=== PATIENT | male | born 2000 | race Two or more races ===

== ENCOUNTER 2022-12-26 00:29 | Emergency (ER) | payer OTHER ==
[~2022-12-26] VITALS: Ht 180.3 cm; Wt 115.9 kg
[2022-12-26 04:10] VITALS: BP 137/91
== END 2022-12-26 04:20 | disposition home or self-care (01) ==
LOC: ER 00:29
DX: S46.912A Strain of unspecified muscle, fascia and tendon at shoulder and upper arm level, left arm, initial encounter (principal); J45.909 Unspecified asthma, uncomplicated; V89.2XXA Person injured in unspecified motor-vehicle accident, traffic, initial encounter; Y93.89 Activity, other specified; Y92.89 Other specified places as the place of occurrence of the external cause; Y99.8 Other external cause status
CPT/HCPCS: 73030

== ENCOUNTER 2024-01-30 21:09 | Emergency (ER) | payer OTHER ==
[~2024-01-30] VITALS: Ht 180.3 cm; Wt 250.0 kg
[2024-01-30 21:09] VITALS: BP 113/86; PULSE 111; RESP 20; O2SAT 97
== END 2024-01-31 00:41 | disposition home or self-care (01) ==
LOC: ER 21:09
DX: S63.692A Other sprain of right middle finger, initial encounter (principal); J45.909 Unspecified asthma, uncomplicated; W22.8XXA Striking against or struck by other objects, initial encounter; Y93.89 Activity, other specified; Y92.89 Other specified places as the place of occurrence of the external cause; Y99.0 Civilian activity done for income or pay
CPT/HCPCS: 73130

== ENCOUNTER 2025-05-01 18:56 | Emergency (ER) | payer SELFPAY ==
[~2025-05-01] VITALS: Ht 180.3 cm; Wt 122.9 kg
[2025-05-01 20:23] VITALS: O2SAT 97
[2025-05-01] MEDS ORDERED: CEPH500C PO (20:33)
--- NOTE | 2025-05-01 20:36 | ED.PDOC ---
History of Present Illness(SKN HPI Comments 24-year-old male presents to ER with complaints of facial injury x1 day. Patient reports that he was reaching up to grab "a metal tote" in his garage at 2:00 p.m. prior to arrival to ER when the metal tote fell and hit the right side of his face. Denies head injury/LOC. Patient presents to ER with minimal abrasions/swelling noted to right facial cheek with bleeding controlled. He denies any current pain and presents to ER ambulatory on arrival, alert oriented x4, with steady gait, in no distress. Denies headache, neck pain, n/v, numbness/tingling, eye pain or any further symptoms/complaints Chief Complaint: Facial Injury Time Seen by MD: 19:00 Primary Care Provider: ROMAINE History of Present Illness: Nurses Notes, Medications, Allergies Allergies: Coded Allergies: NO KNOWN ALLERGIES (Unverified , 01/25/13) Home Meds Active Scripts Cephalexin Monohydrate (Cephalexin) 500 Mg Cap, 1 CAP PO BID for 7 Days, #14 CAP 0 Refills Prov:RADHA LANTIGUA 05/01/25 Information Source: Patient Mode of Arrival: Ambulatory Tetanus: UTD Past Medical History PAST MEDICAL HISTORY: Asthma Surgical History: Appendectomy Family History Family History: Unknown Social History Smoker: Non-Smoker Alcohol: Denies ETOH Use Drugs: Denies Drug Use Lives In: Home Constitutional: denies: chills, diaphoresis, fatigue, fever, malaise, sweats, weakness, others EENTM: reports: others (As stated in HPI) Respiratory: denies: cough, hemoptysis, orthopnea, SOB at rest, shortness of breath, SOB with excertion, stridor, wheezing, others Cardiovascular: denies: chest pain, dizzy spells, diaphoresis, Dyspnea on exertion, edema, irregular heart beat, left arm pain, lightheadedness, palpitations, PND, syncope, others Gastrointestinal: denies: abdomen distended, abdominal pain, blood streaked bowels, constipated, diarrhea, dysphagia, difficulty swallowing, hematemesis, melena, nausea, poor appetite, poor fluid intake, rectal bleeding, rectal pain, vomiting, others Genitourinary: denies: burning, dysuria, flank pain, frequency, hematuria, incontinence, penile discharge, penile sore, pain, testicle pain, testicle swelling, urgency, others Neurological: denies: dizziness, fainting, headache, left sided numbness, left sided weakness, numbness, paresthesia, pre-existing deficit, right sided numbness, right sided weakness, seizure, speech problems, tingling, tremors, weakness, others Musculoskeletal: denies: back pain, gout, joint pain, joint swelling, muscle pain, muscle stiffness, neck pain, others Integumetry: reports: others (As stated in HPI) Allergic/Immunocompromised: denies: Difficulty Healing, Frequent Infections, Hives, Itching, others Hematologic/Lymphatic: denies: anemia, blood clots, easy bleeding, easy bruising, swollen glands, others Endocrine: denies: excessive hunger, excessive sweating, excessive thirst, excessive urination, flushing, intolerance to cold, intolerance to heat, unexplained weight gain, unexplained weight loss, others Psychiatric: denies: anxiety, bipolar disorder, depression, hopeless, panic disorder, schizophrenia, sleepless, suicidal, others Physical Exam General Appearance: No Apparent Distress, Obese HEENT: Normal ENT Inspection, PERRL/EOMI, Pharynx Normal, TMs Normal, Other (Minimal abrasions/swelling/TTP noted to right facial cheek with bleeding controlled. No periorbital swelling/ecchymosis/laceration/further skin changes noted) Neck: Full Range of Motion, Non-Tender, Normal Respiratory: Chest Non-Tender, Lungs Clear, No Accessory Muscle Use, No Respiratory Distress, Normal Breath Sounds Cardiovascular: No Murmur, No Gallop, Regular Rate/Rhythm Breast Exam: Deferred Gastrointestinal: NOT DONE Genitalia: Deferred Pelvic: Deferred Rectal: Deferred Extremities: Normal capillary refill, Normal range of motion Neurologic: Alert, game developer II-XII nml as Tested, No Motor Deficits, Normal Affect, Normal Mood, No Sensory Deficits Cerebellar Function: Normal Reflexes: Normal Skin: Dry, Warm Lymphatic: No Adenopathy Was a procedure done? Was a procedure done?: No Sedation Sedation?: No Differential Diagnosis (INTG) Differential Diagnosis: Laceration, Open Fracture, Puncture Wound, Retained Foreign Body, Other (Closed head injury) X-Ray, Labs, Meds, VS Vital Signs Date Time Temp Pulse Resp B/P (MAP) Pulse Ox O2 Delivery O2 Flow Rate FiO2 05/01/25 20:23 98.5 90 16 155/102 (119) 97 98.5 05/01/25 20:23 97 Room Air* 0 21 05/01/25 19:25 98.5 90 16 155/102 (119) 97 98.5 Wound cleaning performed at bedside Wound care/cleaning discussed and advised Advised to follow up with PCP in 1-2 days Patient verbalized understanding and agreeable with current plan of care Advised to return to ER immediately if symptoms worsen Time of 1ST Reevaluation: 20:12 Reevaluation 1ST: N/A Patient Education/Counseling: Diagnosis, Treatment, Prognosis, Need For Follow Up Family Education/Counseling: No Family Present SEPSIS Sepsis Screen Date sepsis recognized/suspect: May 01, 2025 Time Sepsis recognized/suspect: 1912 Recent Procedure: No On Antibiotic Therapy: No Respiratory Rate >20: No Heart Rate >90: No Temp<36 C (96.8 F) or >38.3 C: No SBP <90 or MAP <65 mmHG: No New Acute Mental Status Change: No Is the patient on CPAP, BIPAP,: No Vital Signs Date Time Temp Pulse Resp B/P (MAP) Pulse Ox O2 Delivery O2 Flow Rate FiO2 05/01/25 20:23 98.5 90 16 155/102 (119) 97 98.5 05/01/25 20:23 97 Room Air* 0 21 05/01/25 19:25 98.5 90 16 155/102 (119) 97 98.5 Departure 1 Departure Time of Disposition: 20:32 Impression: Primary Impression: Abrasion of face Qualified Codes: S00.81XA - Abrasion of other part of head, initial e ncounter Additional Impression: Facial injury Qualified Codes: S09.93XA - Unspecified injury of face, initial encounter Disposition: HOME / SELF CARE / HOMELESS Condition: Stable e-Prescriptions Cephalexin Monohydrate (Cephalexin) 500 Mg Cap 1 CAP PO BID for 7 Days, #14 CAP 0 Refills Prov: RADHA LANTIGUA 05/01/25 Discharged With: Relative (Father) Critical Care Note Critical Care Time?: No Stability Stability form required: No Heart Score Heart Score: Heart Score Response (Comments) Value History N/A 0 EKG N/A 0 Age N/A 0 Risk Factors N/A 0 Troponin N/A 0 Total 0 RADHA LANTIGUA May 01, 2025 20:36
[2025-05-01 20:42] VITALS: BP 146/99; PULSE 80; RESP 18; TEMP 98.3; O2SAT 96
== END 2025-05-01 20:46 | disposition home or self-care (01) ==
LOC: ER 19:02
DX: S00.81XA Abrasion of other part of head, initial encounter (principal); S09.8XXA Other specified injuries of head, initial encounter; J45.909 Unspecified asthma, uncomplicated; Z90.49 Acquired absence of other specified parts of digestive tract; W19.XXXA Unspecified fall, initial encounter; Y93.89 Activity, other specified; Y92.89 Other specified places as the place of occurrence of the external cause; Y99.8 Other external cause status